=== PATIENT | female | born 1980 | race Caucasian/White ===

== ENCOUNTER 2018-02-21 17:49 | Emergency (ER) | payer OTHER ==
[~2018-02-21 17:49] MED LIST: OXYC-360 PO; PREN0.01 PO
[2018-02-21 18:19] VITALS: BP 124/80; PULSE 91
[2018-02-21 18:20] VITALS: RESP 18; TEMP 98.6
--- NOTE | 2018-02-21 18:44 | PD ---
HPI Chief Complaint Cramping Date Seen: Feb 21, 2018 Time Seen: 18:40 Travel History International Travel<30 Days: No Contact w/Intl Traveler<30Days: No Known Affected Area: No History of Present Illness HPI 37-year-old who is at approximately 26 weeks gestation based on last menstrual cycle comes in complaining of cramping that she had over the weekend, none presently. She has not had any care during this and has had limited care and her 2 prior pregnancies. Patient was being seen at the [facility] but missed her last 2 appointments and missed her ultrasound appointment and presently has no follow-up. Her 2 prior pregnancies resulted in a term gestation with spontaneous vaginal delivery without complications either antepartum or intrapartum. Patient denies vaginal discharge bleeding or dysuria. Weeks Gestation: 26 Para: 2 : 3 History Past Medical History Medical History: Denies Significant Hx Obstetric History Obstetric History Spontaneous vaginal delivery 2 First child was 6 lbs. 7 oz., second child was 9 lbs. 14 oz. Past Surgical History Surgical History: No Previous Surgery Family History Family History: Negative Social History Alcohol Use: No Tobacco Use: No Substance Abuse: No Allergies-Medications (Allergen,Severity, Reaction): Coded Allergies: No Known Allergies (Verified Allergy, Severe, 08/02/07) Home Meds Reported Medications Oxycodone/Acetaminophen (Percocet) 5 Mg/325 Mg Tab, 1 TAB PO Q8HPRN, #30 0 Refills FOR PAIN 09/16/07 Multivit/Min/Fol Ac/Iron/Pren ( Vit ( Plus)) Tab, 1 TAB PO DAILY, 0 Refills 09/14/07 Review of Systems Except as stated in HPI: all other systems reviewed are Neg Physical Exam Narrative GENERAL: Well-nourished, well-developed patient. SKIN: Warm and dry. HEAD: Normocephalic and atraumatic. EYES: No scleral icterus. No injection or drainage. ENT: No nasal drainage noted. Mucous membranes pink. Airway patent. NECK: Supple, trachea midline. No JVD. CARDIOVASCULAR: Regular rate and rhythm without murmurs, gallops, or rubs. RESPIRATORY: Breath sounds equal bilaterally. No accessory muscle use. ABDOMEN/GI: Abdomen soft, non-tender, bowel sounds present, no rebound, no guarding Gravid to [24-] weeks size Fundal Height: [-] GENITOURINARY: External Genitalia: intact and normal in appearance BUS glands: [-Normal] Cervix: [Posterior] Dilatation: [Closed-] Effacement: [-Long] Station: [High-] Presentation: [-] Membranes: [intact or ruptured] Uterine Contractions: [-] Absent FHT's: Category: [-] 1 Baseline: [-] 140 Reactive: [-] Moderate Variability: [-] Moderate Decels: [-] Absent EXTREMITIES: No cyanosis or edema. BACK: Nontender without obvious deformity. No CVA tenderness. NEUROLOGICAL: Awake and alert. Motor and sensory grossly within normal limits. Five out of 5 muscle strength in all muscle groups. Normal speech. Data Data Vital Signs Reviewed: Yes [facility] Medical Record Reviewed: Yes Plan 37-year-old who is at 26 weeks gestation No care patient was given information for the [facility] Patient had some lower pelvic cramping over the weekend none presently and no signs of labor at this time Diagnosis Diagnosis: Primary Impression: 26 weeks gestation of Additional Impression: Pelvic pain during in second trimester, antepartum Disposition: 01 DISCHARGE HOME Vida Posey MD Feb 21, 2018 18:44
[2018-02-21 19:57] LABS: AMORPHOUS SEDIMENT, URINE OCC; BACTERIA, URINE OCC /hpf; BILIRUBIN, URINE NEG (NEG); BLOOD, URINE SMALL (NEG); CALCIUM OXALATE CRYSTALS,URINE FEW /hpf; GLUCOSE,URINE NEG (NEG); KETONE, URINE TRACE mg/dL (NEG); MUCUS URINE FEW /lpf (OCC); NITRITE,URINE NEG (NEG); SQUAMOUS EPITHELIAL CELL URINE 3 /hpf (0-5); URINE COLOR Amber (YELLW/STRAW); URINE LEUKOCYTE ESTERASE NEG (NEG)
== END 2018-02-21 19:05 | disposition home or self-care (01) ==
LOC: HOBED 17:49
DX: O26.892 Other specified pregnancy related conditions, second trimester (principal); R10.2 Pelvic and perineal pain; Z3A.26 26 weeks gestation of pregnancy
CPT/HCPCS: 81001; 87086; 99284

== ENCOUNTER 2018-05-26 23:35 | Inpatient (IN) ==
[2018-05-27 00:24] LABS: Baso # (Auto) 0.1 th/mm3 (0.0-0.2); Baso % (Auto) 0.4 % (0.0-2.0); Eos # (Auto) 0.1 th/mm3 (0.0-0.4); Eos % (Auto) 0.6 % (0.0-4.0); Hematocrit 38.2 % (35.0-46.0); Lymph # (Auto) 1.7 th/mm3 (1.0-4.8); Lymph % (Auto) 10.1 % (9.0-44.0); Mean Corpuscular HGB Conc 33.9 % (32.0-36.0); Mean Corpuscular Hemoglobin 31.1 pg (27.0-34.0); Mean Corpuscular Volume 91.8 fL (80.0-100.0); Mean Platelet Volume 8.2 fL (7.0-11.0); Mono # (Auto) 1.1 th/mm3 (0.0-0.9); Mono % (Auto) 6.8 % (0.0-8.0); Neut # (Auto) 13.9 th/mm3 (1.8-7.7); Neut % (Auto) 82.1 % (16.0-70.0); Platelet Count 245 th/mm3 (150-450); Red Blood Count 4.16 mil/mm3 (4.00-5.30); Red Cell Distribution Width 13.8 % (11.6-17.2); White Blood Count 16.9 th/mm3 (4.0-11.0)
[2018-05-27] MEDS ORDERED: fentaNYL 2MCG-Bupiv 0.125% Epi 150 ML EPIDURAL ONE (00:27)
[2018-05-27 00:32] LABS: Albumin 2.9 g/dL (3.4-5.0)
[2018-05-27 00:34] LABS: Total Protein 7.1 g/dL (6.4-8.2)
[2018-05-27] MEDS ORDERED: Lidocaaine 1.5%/Epinephrine 1:200,000 PF Inj 5 ML Amp ONE (00:36)
[2018-05-27] MEDS ORDERED: Lidocaine PF 1% Inj 5 ML Vial ONE (00:37)
[2018-05-27] MEDS ORDERED: Oxytocin 30 Units/500ml Premix 0 UNITS/0 ML BAG ONE ×2 (00:41→01:01)
[2018-05-27] MEDS ORDERED: Lidocaine 1% Inj 50 ML Vial ONE ×2 (00:41→01:01)
[2018-05-27] MEDS ORDERED: Witch Hazel 50%/Glyderin 12.5% 40 Pad Jar RECTAL PRN (01:13)
[2018-05-27] MEDS ORDERED: Acetaminophen 325 MG Tablet PO PRN (01:13)
[2018-05-27] MEDS ORDERED: Oxytocin 30 Units/500ml Premix 30 UNITS/500 ML BAG IV.CONT PRN (01:13)
[2018-05-27] MEDS ORDERED: Bisacodyl 10 MG Supp RECTAL PRN (01:13)
[2018-05-27] MEDS ORDERED: Benzocaine 20% Top Spray 60 ML Can TOPICAL PRN (01:13)
[2018-05-27] MEDS ORDERED: Naloxone Inj 0.4 MG/ML Vial IV.PUSH PRN (01:13)
[2018-05-27] MEDS ORDERED: Zolpidem Tartrate 5 MG Tablet PO PRN (01:13)
[2018-05-27] MEDS ORDERED: fentaNYL Citrate Inj 100 MCG/2 ML Ampul IV.PUSH ONE (01:14)
[2018-05-27] MEDS: Senna/Docusate Sodium 8.6/50 MG Tablet PO SCH ×2 (09:01→22:50)
[2018-05-27 09:42] LABS: Bilirubin,Urine Negative (Negative); Clarity,Urine Hazy (Clear); Color,Urine Red (Yellw/Straw); Glucose,Urine (UA) Negative (Negative); Leukocyte Esterase,Urine Trace (Negative); Nitrite,Urine Negative (Negative); Specific Gravity,Urine 1.009 (1.002-1.035)
[2018-05-27 10:21] LABS: Amphetamine Urine With Conf Neg (Neg); Benzodiazepine Urine With Conf Neg (Neg)
[2018-05-27] MEDS ORDERED: Diphtheria/Tetanus/Pertussis Vaccine Inj 0.5 ML Syringe IM ONE (16:00)
[2018-05-27] MEDS ORDERED: Measles/Mumps/Rubella Vaccine Inj 0.5 ML Vial SQ ONE (16:00)
[2018-05-28] MEDS: Senna/Docusate Sodium 8.6/50 MG Tablet PO SCH ×2 (18:13→21:35)
[2018-05-29] MEDS ORDERED: medroxyPROGESTERone Acetate Inj 150 MG/ML Syringe IM ONE (09:00)
[2018-05-29] MEDS: Senna/Docusate Sodium 8.6/50 MG Tablet PO SCH (10:04)
== END 2018-05-29 11:29 | disposition home or self-care (01) ==
LOC: HOBED 23:35 → H2E 05-27 → H1EA 05-27 03:21
PROVIDERS: ADMIT Obstetrics & Gynecology Maternal & Fetal Medicine; ATTEND Obstetrics & Gynecology Maternal & Fetal Medicine